=== PATIENT | male | born 1985 | race American Indian/Alaskan Native ===

== ENCOUNTER 2016-10-13 13:11 | Emergency (ER) | payer MEDICARE ==
[2016-10-13 15:38] LABS: Urine Drugs of Abuse Note Disclamer
[2016-10-13 15:39] LABS: Basophils % (Auto) 0.3 % (0.0-1.8); Eosinophils % (Auto) 2.5 % (0.0-4.3); Hematocrit 39.5 % (35.5-45.6); Hemoglobin 12.8 gm/dl (11.8-15.2); Mean Corpuscular HGB Conc 32 % (32-34); Mean Corpuscular Hemoglobin 27 pg (28-32); Mean Corpuscular Volume 82 fl (84-94); Platelet Count 185 K/mm3 (140-440); Red Blood Count 4.83 M/mm3 (3.65-5.03); Red Cell Distribution Width 14.9 % (13.2-15.2); White Blood Count 8.1 K/mm3 (4.5-11.0)
[2016-10-13 15:52] LABS: Bilirubin,Urine NEG (Negative); Blood,Urine NEG (Negative); Ketones,Urine NEG (Negative); Leukocyte Esterase,Urine NEG (Negative); Mucus,Urine 3+ /HPF; Nitrite,Urine NEG (Negative); Protein,Urine <15 mg/dL mg/dL (Negative); WBC,Urine < 1.0 /HPF (0.0-6.0)
[2016-10-13 15:56] LABS: Anion Gap 17 mmol/L; BUN/Creatinine Ratio 18.75; Blood Urea Nitrogen 15 mg/dL (9-20); Calcium 8.5 mg/dL (8.4-10.2); Carbon Dioxide 25 mmol/L (22-30); Chloride 100.4 mmol/L (98-107); Glucose 126 mg/dL (75-100); Potassium 3.7 mmol/L (3.6-5.0); Sodium 139 mmol/L (137-145)
[2016-10-13] MEDS ORDERED: NACL 0.9% 1000 ML 2,000 ML IV ONE (17:06)
[2016-10-13] MEDS ORDERED: TYLENOL PO PRN (17:08)
[2016-10-13] MEDS ORDERED: MILK OF MAGNESIA PO PRN (17:08)
[2016-10-13] MEDS ORDERED: ALUM-MAG HYDROX-SIMETH 200-200-20MG/5ML PO PRN (17:08)
--- NOTE | 2016-10-13 17:09 | Emergency Department Report ---
HPI - General Chief Complaint: Psych Time Seen by Provider: 10/13/16 13:52 - HPI HPI: The patient is a 30-year-old male who presents for evaluation of mental health. The patient reports constant and severe sadness and thoughts of suicidal ideation for the past 2-3 days, exacerbated with arguing with family members, constant since onset. The patient denies fever, headache, unexplained weight loss or weight gain, heat or cold intolerance, skin, hair, or nail changes, neuro deficits, homicidal ideations, or auditory or visual hallucinations. ED Past Medical Hx - Past Medical History Previous Medical History?: Yes Hx Psychiatric Treatment: Yes (schizophrenia/bipolar) Hx HIV: Yes - Surgical History Past Surgical History?: Yes Additional Surgical History: Surgery on right hand - Social History Smoking Status: Current Every Day Smoker Substance Use Type: None - Medications Home Medications: Home Medications Medication Instructions Recorded Confirmed Last Taken Type Emtricitabin/Tenofovir [TRUVADA 1 tab PO QDAY 09/11/13 07/21/15 04/27/15 History 200-300 mg] Raltegravir Potassium [Isentress] 400 mg PO BID 09/11/13 07/21/15 04/27/15 History Sertraline [Zoloft] 100 mg PO DAILY 09/11/13 07/21/15 04/27/15 History OLANzapine [Zyprexa] 15 mg PO BID 02/15/14 07/21/15 04/27/15 History Divalproex Sodium [Depakote] 125 mg PO DAILY 07/21/15 07/21/15 Unknown History [place] Carbonate [Eskalith] 0 mg PO DAILY 07/21/15 07/21/15 Unknown History Mirtazapine Solutab [Remeron] 0 mg PO QHS 07/21/15 07/21/15 Unknown History Acetamin/Codeine 120-12Mg/5 ml 10 ml PO TID PRN #120 oz 01/31/16 Unknown Rx [Tylenol/Codeine 120-12 mg/5 ml] Chlorhexidine Gluconate [Paroex] 10 ml MM BID #473 ml 01/31/16 Unknown Rx ED Review of Systems ROS: Stated complaint: MENTAL HEALTH EVALUATION Other details as noted in HPI Constitutional: denies: fever ENT: denies: throat or neck pain Respiratory: denies: cough, shortness of breath Cardiovascular: denies: chest pain Endocrine: denies unexplained weight loss or gain Gastrointestinal: denies: abdominal pain, nausea Genitourinary: denies: dysuria Musculoskeletal: denies: leg swelling Skin: denies: rash Neurological: denies: headache Hematological/Lymphatic: denies: easy bleeding or easy bruising Psych: reports sadness/hopelessness, and SI Physical Exam - Physical Exam Vital Signs: Vital Signs 10/13/16 10/13/16 10/13/16 13:22 14:41 17:03 Temperature 98.2 F 98.2 F Pulse Rate 77 81 Respiratory 18 20 16 Rate Blood Pressure 129/85 Blood Pressure 96/66 [Left] O2 Sat by Pulse 100 97 95 Oximetry Physical Exam: General: well-nourished, well-developed, no acute distress Head: Normocephalic, atraumatic Eyes: normal sclera ENT: Mucous membranes are pale and dry Neck: trachea midline, neck supple, No neck stiffness, no cervical adenopathy Respiratory: Breath sounds equal bilaterally, no wheezing, rales, or rhonchi Cardio: S1 and S2 present, no murmurs, rubs, gallops, capillary refill is delayed Abdomen: Normoactive bowel sounds, soft abdomen, no rigidity, no guarding or rebound tenderness Musc: No pitting edema Skin: No rash Neuro: no facial drooping, normal speech Psych: flat affect, poor insight, positive SI ED Course Vital Signs 10/13/16 10/13/16 10/13/16 13:22 14:41 17:03 Temperature 98.2 F 98.2 F Pulse Rate 77 81 Respiratory 18 20 16 Rate Blood Pressure 129/85 Blood Pressure 96/66 [Left] O2 Sat by Pulse 100 97 95 Oximetry ED Medical Decision Making - Lab Data Result diagrams: 10/13/16 15:24 10/13/16 15:24 - Medical Decision Making The patient was seen and examined by myself. The patient is placed on a back pad inspector and continuous pulse ox. On initial evaluation, the patient was found to be in no distress. Labs are obtained. The patient is given 1 L normal saline fluid bolus for treatment of dehydration. Lab results are grossly unremarkable. The patient is medically clear. Mental health is consulted. Mental health evaluates the patient and agrees that the patient is at risk of harm to self. A 1013 is completed. The patient will be admitted to a psychiatric facility once bed placement is obtained. Critical care attestation.: If time is entered above; I have spent that time in minutes in the direct care of this critically ill patient, excluding procedure time. ED Disposition Clinical Impression: Suicidal ideations, Dehydration Disposition: DC/TX PSY HOSP/PSY UNIT Is pt being admited?: No Does the pt Need Aspirin: No Condition: Stable Referrals: PRIMARY CARE, [Primary Care Provider] - 3-5 Days Time of Disposition: 14:26
[2016-10-13] MEDS ORDERED: RALTEGRAVIR POTASSIUM 400 MG PO SCH (22:00)
[2016-10-13] MEDS: ISENTRESS PO SCH (22:05)
--- NOTE | 2016-10-14 09:11 | Consultation ---
History of Present Illness - Reason for Consult Consult date: 10/14/16 Reason for consult: suicidal thoughts - Chief Complaint Chief complaint: My personal shelter isn't giving me my medications - History of Present Psychiatric Illness This is a 30 year old male with a PPH of Bipolar Disorder v Schizophrenia per self-report who is now presenting with another episode of SI in the context of a broader depressive episode. He was evaluated by the ED physician and medically cleared prior to placing him on a 1013 and consulting Mental Health to help find appropriate placement. Upon my clinical interview, the patient noted that he has had several hospitalization for a similar presentation. The most recent hospitalization was at [facility] three weeks ago, when he was started on the following medications: depakote, haloperidol, cogentin, lorazepam , and zoloft. I have reviewed the past medication history as noted in the ED note, which differs from that provided by the patient today. He did not recall the dosing of his medication, but did note that he has been non-adherent for the past 1.5 weeks since his discharge from the personal shelter. Consequently , his symptoms have worsened to the point of requiring another mental health evaluation and possible referral to an emergency receiving facility. He presently self-reports SI/HI and an irritable mood. No AVH noted. He is currently not manic, although he is fairly hyperverbal. This is likely stress related. Medications and Allergies Allergies Allergy/AdvReac Type Severity Reaction Status Date / Time quetiapine fumarate AdvReac Unknown Verified 07/21/15 23:20 [From Seroquel] risperidone [From Risperdal] AdvReac Vomiting Verified 09/11/13 08:36 Home Medications Medication Instructions Recorded Confirmed Last Taken Type Emtricitabin/Tenofovir [TRUVADA 1 tab PO QDAY 09/11/13 07/21/15 04/27/15 History 200-300 mg] Raltegravir Potassium [Isentress] 400 mg PO BID 09/11/13 07/21/15 04/27/15 History Sertraline [Zoloft] 100 mg PO DAILY 09/11/13 07/21/15 04/27/15 History OLANzapine [Zyprexa] 15 mg PO BID 02/15/14 07/21/15 04/27/15 History Divalproex Sodium [Depakote] 125 mg PO DAILY 07/21/15 07/21/15 Unknown History [place] Carbonate [Eskalith] 0 mg PO DAILY 07/21/15 07/21/15 Unknown History Mirtazapine Solutab [Remeron] 0 mg PO QHS 07/21/15 07/21/15 Unknown History Acetamin/Codeine 120-12Mg/5 ml 10 ml PO TID PRN #120 oz 01/31/16 Unknown Rx [Tylenol/Codeine 120-12 mg/5 ml] Chlorhexidine Gluconate [Paroex] 10 ml MM BID #473 ml 01/31/16 Unknown Rx Active Meds: Active Medications Acetaminophen (Tylenol) 650 mg PO Q4HR PRN PRN Reason: Pain MILD(1-3)/Fever >100.5/RADFORD Al Hydrox/Mg Hydrox/Simethicone (Alum-Mag Hydrox-Simeth [phone]/5ml) 30 ml PO Q4HR PRN PRN Reason: Indigestion Divalproex Sodium (Depakote Dr) 125 mg PO DAILY [facility] Emtricitabine (Emtriva) 200 mg PO QDAY [facility] Magnesium Hydroxide (Milk Of Magnesia) 30 ml PO Q12HR PRN PRN Reason: Constipation Olanzapine (Zyprexa) 15 mg PO BID [facility] Last Admin: 10/13/16 22:05 Dose: 15 mg Raltegravir (Isentress) 400 mg PO BID [facility] Last Admin: 10/13/16 22:05 Dose: 400 mg Tenofovir Disoproxil Fumarate (Viread) 300 mg PO QDAY [facility] Mental Status Exam - Vital signs Last Vital Signs Temp 98.2 F 10/14/16 07:40 Pulse 94 H 10/14/16 07:40 Resp 18 10/14/16 07:40 BP 124/84 10/14/16 07:40 Pulse Ox 97 10/14/16 07:40 - Exam Orientation: time, place, person Affect: anxious Mood: anxious Thought Process: Intact Perceptions: none Speech: pressured Concentration: distractible Motor activity: restless Level of consciousness: alert Memory: Intact Sleep Symptoms: None Interaction: cooperative Results Result Diagrams: 10/13/16 15:24 10/13/16 15:24 Abnormal lab results 10/13/16 10/13/16 10/13/16 Range/Units 15:24 15:24 17:24 MCV 82 L (84-94) fl MCH 27 L (28-32) pg [place] % (Auto) 9.3 H (0.0-7.3) % Glucose 126 H (75-100) mg/dL Valproic Acid 2.9 L (50-100) ug/mL All other labs normal. Assessment and Plan Assessment and plan: This is a 30 year old domiciled male with a chronic history of Bipolar Disorder v Schizophrenia per self-report who now presents with another depressive episode with associated SI/HI in the context of a specific social stressor and medication non-adherence. The plan is to restart the medications that stabilized his mood at [facility] and transfer him to an emergency receiving facility. Start loading dose of Depakote ER 1000mg, Haloperidol 5 mg, Cogentin 0.5 mg.
[2016-10-14] MEDS ORDERED: NON-FORMULARY (Emtricitabin/Tenofovir [Truvada 200-300 Mg] 1 TAB) PO SCH (10:00)
[2016-10-14] MEDS ORDERED: VIREAD PO SCH (10:00)
[2016-10-14] MEDS ORDERED: EMTRIVA PO SCH (10:00)
[2016-10-14] MEDS: ISENTRESS PO SCH (11:13)
--- NOTE | 2016-10-14 13:22 | Emergency Department Report ---
Blank Doc - Documentation Documentation: Vital Signs - 24 hr 10/13/16 10/13/16 10/13/16 13:22 14:41 17:03 Temperature 98.2 F 98.2 F Pulse Rate 77 81 Respiratory 18 20 16 Rate Blood Pressure 129/85 Blood Pressure 96/66 [Left] O2 Sat by Pulse 100 97 95 Oximetry 10/13/16 10/13/16 10/14/16 17:59 18:30 07:40 Temperature 98.2 F Pulse Rate 94 H Respiratory 18 Rate Blood Pressure Blood Pressure 102/63 115/68 124/84 [Left] O2 Sat by Pulse 97 Oximetry No events reported. Vital signs reviewed. Awaiting placement
[2016-10-14 13:45] VITALS: BP 123/75
[2016-10-14] MEDS ORDERED: COGENTIN PO SCH (22:00)
[2016-10-14] MEDS ORDERED: HALDOL PO SCH (22:00)
== END 2016-10-14 13:46 ==
LOC: EEVIPCON 13:11 → ED 13:11
DX: R45.851 Suicidal ideations (principal); E86.0 Dehydration; F31.9 Bipolar disorder, unspecified; F20.9 Schizophrenia, unspecified; F17.200 Nicotine dependence, unspecified, uncomplicated
CPT/HCPCS: 36415; 80048; 80164; 80307; 81001; 85025; 99285; G0480; 80320

== ENCOUNTER 2017-01-14 20:01 | Emergency (ER) | payer MEDICARE ==
[2017-01-14 22:06] LABS: Basophils % (Auto) 0.3 % (0.0-1.8); Eosinophils % (Auto) 1.8 % (0.0-4.3); Hematocrit 38.8 % (35.5-45.6); Hemoglobin 12.8 gm/dl (11.8-15.2); Mean Corpuscular HGB Conc 33 % (32-34); Mean Corpuscular Hemoglobin 26 pg (28-32); Mean Corpuscular Volume 80 fl (84-94); Platelet Count 192 K/mm3 (140-440); Red Blood Count 4.85 M/mm3 (3.65-5.03); Red Cell Distribution Width 14.6 % (13.2-15.2); White Blood Count 8.2 K/mm3 (4.5-11.0)
[2017-01-14 22:20] LABS: Alanine Aminotransferase 13 units/L (7-56); Albumin 4.1 g/dL (3.9-5); Albumin/Globulin Ratio 1.3 %; Alkaline Phosphatase 54 units/L (35-129); Anion Gap 18 mmol/L; BUN/Creatinine Ratio 16.25; Bilirubin,Total < 0.20 mg/dL (0.1-1.2); Blood Urea Nitrogen 13 mg/dL (9-20); Calcium 8.8 mg/dL (8.4-10.2); Carbon Dioxide 24 mmol/L (22-30); Chloride 104.8 mmol/L (98-107); Glucose 104 mg/dL (75-100); Lipase 23 units/L (13-60); Potassium 3.5 mmol/L (3.6-5.0); Sodium 143 mmol/L (137-145); Total Protein 7.2 g/dL (6.3-8.2)
--- NOTE | 2017-01-15 04:13 | Emergency Department Report ---
ED Abdominal Pain HPI - General Chief Complaint: Abdominal Pain Stated Complaint: constipation Time Seen by Provider: 01/15/17 04:02 Source: patient Mode of arrival: Ambulatory Limitations: No Limitations - History of Present Illness Initial Comments: Patient is a 31-year-old male with history of schizophrenia bipolar, HIV presents with complaints of abdominal pain and constipation. Patient reports suprapubic abdominal pain with no radiation or migration associated constipation. Patient reports he needs to strain to have a bowel movement last bowel movement was 4 days ago. Pt is having flatus, no prior history of abd surgery. Otherwise no fevers, chills, nausea, vomiting, diarrhea, chest pain, shortness of breath, travel, or sick contacts. Patient reports he is taking his HARRT therapy last CD4 count is unknown - Related Data Home Medications Medication Instructions Recorded Confirmed Last Taken Emtricitabin/Tenofovir [TRUVADA 1 tab PO QDAY 09/11/13 07/21/15 04/27/15 200-300 mg] Raltegravir Potassium [Isentress] 400 mg PO BID 09/11/13 07/21/15 04/27/15 Sertraline [Zoloft] 100 mg PO DAILY 09/11/13 07/21/15 04/27/15 OLANzapine [Zyprexa] 15 mg PO BID 02/15/14 07/21/15 04/27/15 Divalproex Sodium [Depakote] 125 mg PO DAILY 07/21/15 07/21/15 Unknown [place] Carbonate [Eskalith] 0 mg PO DAILY 07/21/15 07/21/15 Unknown Mirtazapine Solutab [Remeron 0 mg PO QHS 07/21/15 07/21/15 Unknown Solutab] Previous Rx's Medication Instructions Recorded Last Taken Type Acetamin/Codeine 120-12Mg/5 ml 10 ml PO TID PRN #120 oz 01/31/16 Unknown Rx [Tylenol/Codeine 120-12 mg/5 ml] Chlorhexidine Gluconate [Paroex] 10 ml MM BID #473 ml 01/31/16 Unknown Rx Docusate Sodium [Colace] 100 mg PO BID PRN #14 capsule 01/15/17 Unknown Rx Polyethylene Glycol 3350 [Miralax 17 gm PO QDAY #14 packet 01/15/17 Unknown Rx 3350] Allergies Allergy/AdvReac Type Severity Reaction Status Date / Time ibuprofen [From Motrin] Allergy Headache Verified 01/14/17 21:42 quetiapine fumarate AdvReac Unknown Verified 07/21/15 23:20 [From Seroquel] risperidone [From Risperdal] AdvReac Vomiting Verified 09/11/13 08:36 trazodone AdvReac Headache Verified 01/14/17 21:43 ED Review of Systems ROS: Stated complaint: RECTAL BLEEDING Other details as noted in HPI Comment: All other systems reviewed and negative ED Past Medical Hx - Past Medical History Previous Medical History?: Yes Hx Psychiatric Treatment: Yes (schizophrenia/bipolar) Hx HIV: Yes - Surgical History Past Surgical History?: Yes Additional Surgical History: Surgery on right hand - Social History Smoking Status: Current Every Day Smoker Substance Use Type: None - Medications Home Medications: Home Medications Medication Instructions Recorded Confirmed Last Taken Type Emtricitabin/Tenofovir [TRUVADA 1 tab PO QDAY 09/11/13 07/21/15 04/27/15 History 200-300 mg] Raltegravir Potassium [Isentress] 400 mg PO BID 09/11/13 07/21/15 04/27/15 History Sertraline [Zoloft] 100 mg PO DAILY 09/11/13 07/21/15 04/27/15 History OLANzapine [Zyprexa] 15 mg PO BID 02/15/14 07/21/15 04/27/15 History Divalproex Sodium [Depakote] 125 mg PO DAILY 07/21/15 07/21/15 Unknown History [place] Carbonate [Eskalith] 0 mg PO DAILY 07/21/15 07/21/15 Unknown History Mirtazapine Solutab [Remeron 0 mg PO QHS 07/21/15 07/21/15 Unknown History Solutab] Acetamin/Codeine 120-12Mg/5 ml 10 ml PO TID PRN #120 oz 01/31/16 Unknown Rx [Tylenol/Codeine 120-12 mg/5 ml] Chlorhexidine Gluconate [Paroex] 10 ml MM BID #473 ml 01/31/16 Unknown Rx Docusate Sodium [Colace] 100 mg PO BID PRN #14 capsule 01/15/17 Unknown Rx Polyethylene Glycol 3350 [Miralax 17 gm PO QDAY #14 packet 01/15/17 Unknown Rx 3350] ED Physical Exam - General Limitations: No Limitations General appearance: alert, in no apparent distress - Head Head exam: Present: atraumatic, normocephalic - Eye Eye exam: Present: normal appearance - ENT ENT exam: Present: mucous membranes moist - Neck Neck exam: Present: normal inspection - Respiratory Respiratory exam: Present: normal lung sounds bilaterally. Absent: respiratory distress, wheezes, rales, rhonchi, stridor - Cardiovascular Cardiovascular Exam: Present: regular rate, normal rhythm, normal heart sounds. Absent: systolic murmur, diastolic murmur, rubs, gallop - GI/Abdominal GI/Abdominal exam: Present: soft, normal bowel sounds. Absent: distended, tenderness, guarding, rebound, rigid, mass, pulsatile mass - Rectal Rectal exam: Present: deferred - Extremities Exam Extremities exam: Present: normal inspection - Back Exam Back exam: Present: normal inspection - Neurological Exam Neurological exam: Present: alert, oriented X3 - Psychiatric Psychiatric exam: Present: normal affect, normal mood - Skin Skin exam: Present: warm, dry, intact, normal color. Absent: rash ED Course Vital Signs 01/14/17 21:43 Temperature 98.7 F Pulse Rate 84 Respiratory 18 Rate Blood Pressure 136/82 O2 Sat by Pulse 100 Oximetry ED Medical Decision Making - Lab Data Result diagrams: 01/14/17 21:48 01/14/17 21:48 - Radiology Data Radiology results: report reviewed KUB: No acute findings as visualized by me results discussed with patient. Pt is requesting hydrocodone for abd pain. I explained to him narcotics can worsen constipation and he can take tylenol or motrin for cramping Critical care attestation.: If time is entered above; I have spent that time in minutes in the direct care of this critically ill patient, excluding procedure time. ED Disposition Clinical Impression: Abdominal pain, Constipation Disposition: DISCHARGED TO HOME OR SELFCARE Is pt being admited?: No Condition: Stable Instructions: Constipation (ED), High Fiber Diet (ED), Abdominal Pain (ED) Prescriptions: Docusate Sodium [Colace] 100 mg PO BID PRN #14 capsule PRN Reason: Constipation Polyethylene Glycol 3350 [Miralax 3350] 17 gm PO QDAY #14 packet Referrals: PRIMARY CARE,MD [Primary Care Provider] - 3-5 Days
--- NOTE | 2017-01-15 04:47 | XRay Report ---
FINAL REPORT PROCEDURE: XR ABDOMEN 2V TECHNIQUE: Abdominal series, including supine and upright AP views. HISTORY: Abdominal Pain COMPARISON: No prior studies are available for comparison. FINDINGS: Bowel gas pattern:Nonobstructive . Masses or calcifications:None . Bony structures:No significant abnormality . Pneumoperitoneum:None . Other:No significant findings . IMPRESSION: No acute abnormality.
[2017-01-15 05:34] LABS: Bilirubin,Urine NEG (Negative); Blood,Urine NEG (Negative); Ketones,Urine TR mg/dL (Negative); Leukocyte Esterase,Urine NEG (Negative); Mucus,Urine 3+ /HPF; Nitrite,Urine NEG (Negative); Urobilinogen,Urine < 2.0 mg/dL (<2.0)
[2017-01-15 06:14] VITALS: BP 130/78
== END 2017-01-15 06:12 | disposition home or self-care (01) ==
LOC: ED 20:01
DX: K59.00 Constipation, unspecified (principal); F17.200 Nicotine dependence, unspecified, uncomplicated; Z98.890 Other specified postprocedural states; Z88.6 Allergy status to analgesic agent; Z88.8 Allergy status to other drugs, medicaments and biological substances
CPT/HCPCS: 36415; 74020; 80053; 81001; 83690; 85025

== ENCOUNTER 2017-04-26 02:42 | Emergency (ER) | payer MEDICARE ==
[2017-04-26 04:18] VITALS: BP 135/90
== END 2017-04-26 07:24 | disposition left against medical advice (07) ==
LOC: ED 02:42
DX: M79.605 Pain in left leg (principal); M79.1 Myalgia; Z53.21 Procedure and treatment not carried out due to patient leaving prior to being seen by health care provider

== ENCOUNTER 2019-07-06 13:13 | Emergency (ER) | payer MEDICARE ==
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
[2019-07-06 14:19] LABS: Bilirubin,Urine NEG (Negative); Blood,Urine NEG (Negative); Color,Urine Yellow (Yellow); Protein,Urine <15 mg/dL mg/dL (Negative); Urobilinogen,Urine < 2.0 mg/dL (<2.0); WBC,Urine < 1.0 /HPF (0.0-6.0)
[2019-07-06 14:21] LABS: Basophils % (Auto) 0.5 % (0.0-1.8); Eosinophils # (Auto) 0.1 K/mm3 (0.0-0.4); Eosinophils % (Auto) 1.6 % (0.0-4.3); Hematocrit 46.8 % (35.5-45.6); Hemoglobin 15.2 gm/dl (11.8-15.2); Lymphocytes # (Auto) 2.4 K/mm3 (1.2-5.4); Lymphocytes % (Auto) 37.9 % (13.4-35.0); Mean Corpuscular HGB Conc 33 % (32-34); Mean Corpuscular Volume 84 fl (84-94); Monocytes # (Auto) 0.6 K/mm3 (0.0-0.8); Monocytes % (Auto) 9.1 % (0.0-7.3); Platelet Count 225 K/mm3 (140-440); Red Blood Count 5.55 M/mm3 (3.65-5.03); Red Cell Distribution Width 14.4 % (13.2-15.2)
[2019-07-06 14:23] LABS: Amphetamine Screen,Urine PRESUMPTIVE NEGATIVE; Benzodiazepines Screen,Urine PRESUMPTIVE NEGATIVE; Cocaine Screen,Urine PRESUMPTIVE NEGATIVE
[2019-07-06 14:38] LABS: Cannabinoid Screen,Urine PRESUMPTIVE NEGATIVE; Methadone Screen,Urine PRESUMPTIVE NEGATIVE; Opiate Screen,Urine PRESUMPTIVE NEGATIVE
[2019-07-06 15:01] LABS: Alanine Aminotransferase 18 units/L (7-56); Albumin 4.5 g/dL (3.9-5); BUN/Creatinine Ratio 25; Blood Urea Nitrogen 20 mg/dL (9-20); Calcium 9.5 mg/dL (8.4-10.2); Hemolysis Index 38
[2019-07-06] MEDS ORDERED: RALTEGRAVIR POTASSIUM 400 MG PO SCH (22:00)
[2019-07-06] MEDS: RALTEGRAVIR POTASSIUM 400 MG TAB PO SCH (22:14)
[2019-07-06] MEDS: NON-FORMULARY EACH (Emtricitabin/Tenofovir [Truvada 200-300 Mg] 1 TAB) PO SCH (22:15)
[2019-07-07 08:31] VITALS: BP 107/69
[2019-07-07] MEDS ORDERED: DIVALPROEX DR 125 MG TAB PO SCH (10:00)
[2019-07-07] MEDS ORDERED: SERTRALINE 100 MG TAB PO SCH (10:00)
[2019-07-07] MEDS: NON-FORMULARY EACH (Emtricitabin/Tenofovir [Truvada 200-300 Mg] 1 TAB) PO SCH (10:26)
[2019-07-07] MEDS: RALTEGRAVIR POTASSIUM 400 MG TAB PO SCH (11:14)
[2019-07-07] MEDS ORDERED: NICOTINE 21 MG/24 HR PATCH TD ONE (11:30)
[2019-07-07] MEDS ORDERED: ALPRAZolam 1 MG TAB PO ONE (12:46)
[2019-07-07] MEDS ORDERED: ALPRAZolam 1 MG TAB ONE (12:48)
== END 2019-07-07 12:49 ==
LOC: ED 13:13
DX: F31.9 Bipolar disorder, unspecified (principal); F20.9 Schizophrenia, unspecified; Z21 Asymptomatic human immunodeficiency virus [HIV] infection status; F17.200 Nicotine dependence, unspecified, uncomplicated; Z12.10 Encounter for screening for malignant neoplasm of intestinal tract, unspecified; Z79.899 Other long term (current) drug therapy; Z88.5 Allergy status to narcotic agent; Z88.8 Allergy status to other drugs, medicaments and biological substances
CPT/HCPCS: 36415; 80053; 80307; 80320; 81001; 85025; 99285; G0480